=== PATIENT | male | born 1990 | race Caucasian/White ===

== ENCOUNTER 2022-07-07 16:27 | Emergency (ER) | payer BC, OTHER, SELFPAY ==
[2022-07-07 16:42] VITALS: BP 135/96; PULSE 89; O2SAT 100
[2022-07-07] MEDS ORDERED: Adacel Vial IM ONE ×2 (16:49→16:59)
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
[2022-07-07] MEDS ORDERED: TORAdol 30 mg Injection IM ONE (17:03)
[2022-07-07] MEDS ORDERED: TORAdol 30 mg Injection ONE (17:06)
[2022-07-07] MEDS ORDERED: BACIGUENT PACKET TP ONE (17:08)
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
== END 2022-07-07 17:38 | disposition home or self-care (01) ==
LOC: ED 16:27
DX: S80.212A Abrasion, left knee, initial encounter (principal); S50.02XA Contusion of left elbow, initial encounter; S40.012A Contusion of left shoulder, initial encounter; V28.49XA Other motorcycle driver injured in noncollision transport accident in traffic accident, initial encounter; Z28.310 Unvaccinated for COVID-19
CPT/HCPCS: 73564; 90471; 90715; 96372; 99283; J1885; A9270-GY